=== PATIENT | male | born 1980 | race Caucasian/White ===

== ENCOUNTER 2017-09-10 10:15 | Emergency (ER) | payer OTHER ==
[2017-09-10 10:28] VITALS: BP 119/93
--- NOTE | 2017-09-10 11:07 | UC ---
FLU HPI - History of Current Complaint Chief Complaint: UCRespiratory Stated Complaint: COUGH, CONGESTED Time Seen by Provider: 09/10/17 10:41 Hx Obtained From: Patient Onset/Duration: Gradual Onset - started yesterday with diarrhea, nausea nad cough, today no better Severity Currently: Moderate Severity Initially: Moderate - Allergy/Home Medications Allergies/Adverse Reactions: Allergies Allergy/AdvReac Type Severity Reaction Status Date / Time No Known Allergies Allergy Verified 09/10/17 10:25 PMH/Surg Hx/FS Hx/Imm Hx Previously Healthy: Yes - Surgical History Surgical History: Yes Surgery Procedure, Year, and Place: [facility]- 1996, 2 root canals 05/05 - Family History Known Family History: Positive: None - Social History Occupation: Employed Full-time - cook Lives: With Family Alcohol Use: Rare Substance Use Type: Marijuana Smoking Status (MU): Never Smoked Tobacco Review of Systems Constitutional: Fatigue Skin: Negative Respiratory: Cough Cardiovascular: Negative Gastrointestinal: Diarrhea, Nausea Genitourinary: Negative Musculoskeletal: Negative Neurological: Negative Psychological: Negative Is Patient Immunocompromised?: No All Other Systems Reviewed And Are Negative: Yes Physical Exam Triage Information Reviewed: Yes Appearance: No Pain Distress, Well-Nourished Vital Signs: Initial Vital Signs Temp 98.4 F 09/10/17 10:26 Pulse 99 09/10/17 10:26 Resp 16 09/10/17 10:26 BP 119/93 09/10/17 10:26 Pulse Ox 100 09/10/17 10:26 Vital Signs Reviewed: Yes ENT: Positive: Pharynx normal, Nasal congestion, TMs normal Neck exam: Normal Respiratory: Positive: Lungs clear, Other: - dry cough x 1 on exam Cardiovascular Exam: Normal Abdominal Exam: Normal Abdomen Description: Positive: Nontender, No Organomegaly, Soft Bowel Sounds: Positive: Present Neurological Exam: Normal Psychological Exam: Normal Skin Exam: Normal Flu Course/Dx - Differential Dx/Diagnosis Differential Diagnosis/HQI/PQRI: Bronchitis, Influenza, Other - viral illness Provider Diagnoses: viral illness Discharge - Discharge Plan Condition: Stable Disposition: HOME Prescriptions: Ondansetron ODT TAB* [Zofran 4 MG Odt TAB*] 4 mg PO Q6H PRN #12 tab.odt PRN Reason: Nausea Patient Education Materials: Viral Syndrome (ED) Forms: *Work Release Referrals: Dmitriy Mason MD [Primary Care Provider] - 2 Days (if no better) Additional Instructions: use anti-nausea medication as prescribed drink plenty of clear fluids report to ER if your symptoms worsen at anytime Addendum entered and electronically signed by Rocael Plata NP 09/10/17 21: 57:
== END 2017-09-10 11:14 | disposition home or self-care (01) ==
LOC: UCEAST 10:15
DX: B34.9 Viral infection, unspecified (principal); F12.90 Cannabis use, unspecified, uncomplicated
CPT/HCPCS: 87502; 99212; G0463